=== PATIENT | male | born 1955 | race Caucasian/White ===

== ENCOUNTER 2022-07-24 01:04 | Emergency (ER) | payer MEDICARE, MEDICAID ==
[~2022-07-24] VITALS: Ht 180.3 cm; Wt 80.0 kg
[2022-07-24] MEDS ORDERED: PIPERACILLIN/TAZ 3.375G PREMIX 50 ML IV ONE (02:30)
[2022-07-24] MEDS ORDERED: SODIUM CHLORIDE 0.9% 1,000 ML IV ONE (02:30)
[2022-07-24] MEDS ORDERED: VANCOMYCIN 1G PREMIX 200 ML IV ONE (02:30)
[2022-07-24 04:32] LABS: HEMATOCRIT. 42.1 % (42.0-52.0); MEAN CORPUSCULAR HEMOGLOBIN 26.8 pg (28.0-32.0); MEAN CORPUSCULAR VOLUME 86.5 fL (80.0-94.0); MEAN PLATELET VOLUME 7.9 fl (7.4-10.4); PLATELET 229 x1000/uL (130-400); RED BLOOD CELL COUNT 4.87 mill/uL (4.7-6.1); RED CELL DISTRIBUTION WIDTH 19.7 % (11.6-14.6)
[2022-07-24 04:39] LABS: CHLORIDE 104 mEq/L (98-107)
[2022-07-24 04:39] LABS: BG BASE EXCESS -2.9 mmol/L (-2.0-2.0); BG CARBOXYHEMOGLOBIN 1.2 % (0.5-1.5); BG DEOXYHEMOGLOBIN 13.3 % (0.0-5.0); BG FRACTION INSPIRED OXYGEN 36; BG HCO3 ACT 25.1 mmol/L (22.0-26.0); BG METHEMOGLOBIN 0.3 % (0.0-1.5); BG OXYGEN SATURATION 86.5 % (92.0-98.5); BG OXYHEMOGLOBIN 85.2 % (94.0-97.0); BG PCO2 57.9 mmHg (35.0-45.0); BG PH 7.255 (7.350-7.450); BG PO2 61.3 mmHg (75.0-100.0); BG SAMPLE SITE RIGHT RADIAL; BG TOTAL HEMOGLOBIN 13.4 g/dL (12.0-18.0); BG VENT MODE NASAL CANNULA
[2022-07-24 05:13] LABS: CLARITY URINE TURBID (CLEAR); COLOR URINE ORANGE (YELLOW); KETONES URINE NEGATIVE (NEGATIVE); LEUKOCYTE ESTERASE URINE 2+ (NEGATIVE); NITRITE URINE POSITIVE (NEGATIVE); OCCULT BLOOD URINE 3+ (NEGATIVE); PH URINE 5.5 (4.5-8.0); PROTEIN URINE 3+ (NEGATIVE); SPECIFIC GRAVITY URINE 1.019 (1.005-1.030)
[2022-07-24 05:32] LABS: PLATELET ESTIMATE NORMAL
[2022-07-24 11:20] VITALS: BP 139/89
== END 2022-07-24 11:20 | disposition home or self-care (01) ==
LOC: ER 01:04
DX: J90 Pleural effusion, not elsewhere classified (principal); Z20.822 Contact with and (suspected) exposure to COVID-19
CPT/HCPCS: 36415; 36600; 71045; 80053; 81003; 82375; 82805; 82962; 83605; 85025; 87040; 87086; 87426; 93005; 96365; 96368; 99291; C9803; J2543; J3370; J7030; A4315